=== PATIENT | female | born 1975 | race Caucasian/White ===

== ENCOUNTER 2020-10-30 17:19 | Emergency (ER) | payer OTHER ==
[2020-10-30 18:07] LABS: HEMOGLOBIN 12.8 gm/dl (12.3-15.3); RED BLOOD COUNT 4.75 M/UL (4.00-5.10); WHITE BLOOD COUNT 9.8 K/UL (4.5-11.0)
[2020-10-30 18:36] LABS: BUN/CREATININE RATIO 12 (0-10)
== END 2020-10-30 18:55 | disposition home or self-care (01) ==
LOC: ER1 17:19
PROVIDERS: Physician Assistant
DX: M79.662 Pain in left lower leg (principal); R79.1 Abnormal coagulation profile
CPT/HCPCS: 80048; 85025; 85379; 85610; 96372; 99283; J1650

== ENCOUNTER → 2020-10-31 | Outpatient (CLI) | payer OTHER | LOC: US 09:27 | DX: M79.662 Pain in left lower leg (principal) | CPT/HCPCS: 93971 ==